=== PATIENT | male | born 1980 | race Hispanic/Latino ===

== ENCOUNTER 2020-01-29 06:12 | Emergency (ER) | payer BC ==
--- NOTE | 2020-01-29 07:29 | ER ---
Nurse's Notes [facility] Name: Daniel Ambrosio Jr Age: 39 yrs Sex: Male : 1980 Arrival Date: 01/29/2020 Time: 06:15 Bed 8 Private MD: Diagnosis: Vertigo of central origin, unspecified ear Presentation: 01/28 06:27 Chief complaint: Patient states: I got off work at 2300 yesterday and began to get jb4 dizzy. I cannot walk fast like I normally do or stand up fast without feeling like I am going to fall. Other than that I have body aches and a headache. No cough, nausea, vomiting or diarhea. Coronavirus screen: Client denies travel out of the [place] in the last 14 days. At this time, the client does not indicate any symptoms associated with coronavirus-19. Ebola Screen: No symptoms or risks identified at this time. Initial Sepsis Screen: Does the patient meet any 2 criteria? No. Patient's initial sepsis screen is negative. Does the patient have a suspected source of infection? No. Patient's initial sepsis screen is negative. Risk Assessment: Do you want to hurt yourself or someone else? Patient reports no desire to harm self or others. Onset of symptoms was January 28, 2020 at 23:00. Transition of care: patient was not received from another setting of care. 06:27 Method Of Arrival: Wheelchair jb4 06:27 Acuity: CAREN 3 jb4 Triage Assessment: 06:32 Headache History: Denies prior headaches. General: Appears in no apparent distress. jb4 comfortable, Behavior is calm, cooperative. Pain: Pain currently is 7 out of 10 on a pain scale. Pain began 2300 yesterday Also complains of no other associated symptoms. Neuro: Level of Consciousness is awake, alert, obeys commands, Oriented to person, place, time, situation, Reports dizziness. Historical: - Allergies: 06:32 No Known Allergies; jb4 - Home Meds: 06:32 metformin 500 mg Oral tab 1 tab 2 times per day [Active]; fenofibrate 160 mg oral tab jb4 [Active]; lisinopril 10 mg Oral tab [Active]; Alprazolam Oral [Active]; - PMHx: 06:32 Anxiety; Diabetes - NIDDM; Hypertension; jb4 - PSHx: 06:32 left hand; jb4 - Immunization history:: Adult Immunizations unknown. - Social history:: Smoking status: Patient denies any tobacco usage or history of. Patient uses alcohol, but reports only rare drinking. Patient/guardian denies using street drugs. Screenin:34 Abuse screen: Denies threats or abuse. Nutritional screening: No deficits noted. jb4 Tuberculosis screening: No symptoms or risk factors identified. Fall Risk None identified. Assessment: 06:34 General: Appears in no apparent distress. comfortable, Behavior is calm, cooperative, jb4 appropriate for age. Pain: Complains of pain in headache, body aches Pain does not radiate. Pain currently is 7 out of 10 on a pain scale. Quality of pain is described as aching. Neuro: Level of Consciousness is awake, alert, obeys commands, Oriented to person, place, time, situation. Cardiovascular: Patient's skin is warm and dry. Respiratory: Airway is patent Respiratory effort is even, unlabored, Respiratory pattern is regular, symmetrical. GI: No signs and/or symptoms were reported involving the gastrointestinal system. : No signs and/or symptoms were reported regarding the genitourinary system. EENT: No signs and/or symptoms were reported regarding the EENT system. Derm: Skin is intact, Skin is pink, warm \T\ dry. Musculoskeletal: Circulation, motion, and sensation intact. Range of motion: intact in all extremities. 07:44 Reassessment: Patient appears in no apparent distress at this time. Patient and/or tw2 family updated on plan of care and expected duration. Pain level reassessed. Patient is alert, oriented x 3, equal unlabored respirations, skin warm/dry/pink. Patient states feeling better. Vital Signs: 06:27 BP 131 / 82; Pulse 84; Resp 16; Temp 98.5(O); Pulse Ox 96% on R/A; Weight 170.1 kg (R); jb4 Height 5 ft. 10 in. (177.80 cm) (R); Pain 7/10; 07:12 BP 115 / 63; Pulse 81; Resp 17; Pulse Ox 98% on R/A; tw2 06:27 Body Mass Index 53.81 (170.10 kg, 177.80 cm) jb4 ED Course: 06:15 Patient arrived in ED. bp1 06:17 Mary, Boyd, MD is Attending Physician. tw4 06:26 Cody Mendiola, RN is Primary Nurse. jb4 06:29 Triage completed. jb4 06:32 Arm band placed on right wrist. jb4 06:34 Patient has correct armband on for positive identification. Bed in low position. Call jb4 light in reach. Side rails up X 1. Pulse ox on. NIBP on. 07:35 Primary Nurse role handed off by Cody Mendiola RN bd 07:36 Gloria Fernández, RN is Primary Nurse. tw2 07:44 No provider procedures requiring assistance completed. Patient did not have IV access tw2 during this emergency room visit. Administered Medications: 06:49 Drug: TORadol 60 mg Route: IM; Site: right gluteus; jb4 07:45 Follow up: Response: No adverse reaction; Pain is decreased tw2 06:50 Drug: Meclizine 25 mg Route: PO; jb4 07:45 Follow up: Response: No adverse reaction; Marked relief of symptoms tw2 Outcome: 07:28 Discharge ordered by . tw4 07:44 Discharged to home ambulatory. tw2 07:44 Condition: stable 07:44 Discharge instructions given to patient, Instructed on discharge instructions, follow up and referral plans. no drinking with medication, no driving heavy equipment, medication usage, Demonstrated understanding of instructions, follow-up care, medications, Prescriptions given X 4. 07:45 Patient left the ED. tw2 Signatures: Jess Fulton Tara, RN RN tw2 Cody Mendiola RN RN jb4 Boyd Hernandez MD MD tw4 Emilie Almanza bp1
--- NOTE | 2020-01-29 07:30 | EDPHYS ---
Physician Documentation [facility] Name: Daniel Ambrosio Jr Age: 39 yrs Sex: Male : 1980 Arrival Date: 01/29/2020 Time: 06:15 Bed 8 Private MD: THOR Physician Boyd Hernandez HPI: 01/28 07:25 This 39 yrs old Male presents to ER via Wheelchair with complaints of tw4 Headache, Dizziness. 07:25 This 39 yrs old Male presents to ER via Wheelchair with complaints of tw4 Headache, Dizziness. 07:25 The patient complains of pain to the forehead. tw4 07:25 The patient presents with vertigo. Onset: The symptoms/episode began/occurred today. tw4 Context: occurred at home. Modifying factors: The symptoms are alleviated by holding head still, the symptoms are aggravated by movement of head, standing up, changing position. Associated signs and symptoms: Pertinent positives: headache, nausea, Pertinent negatives: abdominal pain, agitation, ataxia, blurred vision, chest pain, combativeness, confusion, diaphoresis, focal weakness, near-syncope, numbness, palpitations, , seizure, shortness of breath, syncope. The patient has not experienced similar symptoms in the past. Historical: - Allergies: 06:32 No Known Allergies; jb4 - Home Meds: 06:32 metformin 500 mg Oral tab 1 tab 2 times per day [Active]; fenofibrate 160 mg oral tab jb4 [Active]; lisinopril 10 mg Oral tab [Active]; Alprazolam Oral [Active]; - PMHx: 06:32 Anxiety; Diabetes - NIDDM; Hypertension; jb4 - PSHx: 06:32 left hand; jb4 - Immunization history:: Adult Immunizations unknown. - Social history:: Smoking status: Patient denies any tobacco usage or history of. Patient uses alcohol, but reports only rare drinking. Patient/guardian denies using street drugs. ROS: 07:25 Constitutional: Negative for fever, chills, and weight loss, Eyes: Negative for injury, tw4 pain, redness, and discharge, Cardiovascular: Negative for chest pain, palpitations, and edema, Respiratory: Negative for shortness of breath, cough, wheezing, and pleuritic chest pain, Abdomen/GI: Negative for abdominal pain, nausea, vomiting, diarrhea, and constipation, Back: Negative for injury and pain, Skin: Negative for injury, rash, and discoloration. 07:25 Neuro: Positive for dizziness, headache, Negative for altered mental status, gait disturbance, hearing loss, loss of consciousness, numbness, seizure activity. Exam: 07:25 Constitutional: This is a well developed, well nourished patient who is awake, alert, tw4 and in no acute distress. Head/Face: Normocephalic, atraumatic. Chest/axilla: Normal chest wall appearance and motion. Nontender with no deformity. No lesions are appreciated. Cardiovascular: Regular rate and rhythm with a normal S1 and S2. No gallops, murmurs, or rubs. Normal PMI, no JVD. No pulse deficits. Respiratory: Lungs have equal breath sounds bilaterally, clear to auscultation and percussion. No rales, rhonchi or wheezes noted. No increased work of breathing, no retractions or nasal flaring. Abdomen/GI: Soft, non-tender, with normal bowel sounds. No distension or tympany. No guarding or rebound. No evidence of tenderness throughout. Back: No spinal tenderness. No costovertebral tenderness. Full range of motion. MS/ Extremity: Pulses equal, no cyanosis. Neurovascular intact. Full, normal range of motion. Neuro: Awake and alert, GCS 15, oriented to person, place, time, and situation. Cranial nerves II-XII grossly intact. Motor strength 5/5 in all extremities. Sensory grossly intact. Cerebellar exam normal. Normal gait. Vital Signs: 06:27 BP 131 / 82; Pulse 84; Resp 16; Temp 98.5(O); Pulse Ox 96% on R/A; Weight 170.1 kg (R); jb4 Height 5 ft. 10 in. (177.80 cm) (R); Pain 7/10; 07:12 BP 115 / 63; Pulse 81; Resp 17; Pulse Ox 98% on R/A; tw2 06:27 Body Mass Index 53.81 (170.10 kg, 177.80 cm) jb4 MDM: 06:17 Patient medically screened. tw4 07:25 Differential diagnosis: cardiac arrhythmia, CVA, generalized weakness. Data reviewed: tw4 vital signs, nurses notes. Data interpreted: Pulse oximetry: Interpretation: normal. Counseling: I had a detailed discussion with the patient and/or guardian regarding: the historical points, exam findings, and any diagnostic results supporting the discharge/admit diagnosis. Special discussion: I discussed with the patient/guardian in detail that at this point there is no indication for admission to the hospital. It is understood, however, that if the symptoms persist or worsen the patient needs to return immediately for re-evaluation. Administered Medications: 06:49 Drug: TORadol 60 mg Route: IM; Site: right gluteus; jb4 07:45 Follow up: Response: No adverse reaction; Pain is decreased tw2 06:50 Drug: Meclizine 25 mg Route: PO; jb4 07:45 Follow up: Response: No adverse reaction; Marked relief of symptoms tw2 Disposition: 01/29/20 07:28 Discharged to Home. Impression: Vertigo of central origin, unspecified ear. - Condition is Stable. - Discharge Instructions: Dizziness, General Headache Without Cause, Vertigo. - Prescriptions for Ibuprofen 800 mg Oral Tablet - take 1 tablet by ORAL route every 12 hours As needed take with food; 20 tablet. Meclizine 25 mg Oral Tablet - take 1 tablet by ORAL route every 8 hours As needed; 30 tablet. Zofran 4 mg Oral Tablet - take 1 tablet by ORAL route every 12 hours As needed; 6 tablet. Cyclobenzaprine 5 mg Oral Tablet - take 1 tablet by ORAL route 3 times per day As needed; 15 tablet. - Work release form, Medication Reconciliation Form, Thank You Letter, Antibiotic Education, Prescription Opioid Use form. - Follow up: Private Physician; When: Upon discharge from the Emergency Department; Reason: Recheck today's complaints, Continuance of care, Re-evaluation by your physician. - Problem is new. - Symptoms have improved. Signatures: Gloria Fernández RN RN tw2 Cody Mendiola RN RN jb4 Boyd Hernandez MD MD tw4 Corrections: (The following items were deleted from the chart) 07:45 07:28 01/29/2020 07:28 Discharged to Home. Impression: Vertigo of central origin, tw2 unspecified ear. Condition is Stable. Forms are Work release form, Medication Reconciliation Form, Thank You Letter, Antibiotic Education, Prescription Opioid Use. Follow up: Private Physician; When: Upon discharge from the Emergency Department; Reason: Recheck today's complaints, Continuance of care, Re-evaluation by your physician. Problem is new. Symptoms have improved. tw4
[2020-01-29 07:52] VITALS: TEMP 98.5
[2020-01-29 07:53] VITALS: BP 115/63; O2SAT 98
== END 2020-01-29 07:45 | disposition home or self-care (01) ==
LOC: ER 06:12
DX: H81.4 Vertigo of central origin (principal); I10 Essential (primary) hypertension; E11.9 Type 2 diabetes mellitus without complications; F41.9 Anxiety disorder, unspecified
CPT/HCPCS: 96372; 99283

== ENCOUNTER 2021-02-08 07:39 | Emergency (ER) | payer BC, OTHER ==
--- NOTE | 2021-02-08 08:40 | RAD REPORT ---
EXAM DESCRIPTION: RAD - Hand Right 3 View - 02/08/2021 8:16 am CLINICAL HISTORY: Pain;Swelling COMPARISON: No comparisons FINDINGS: No acute fracture. No malalignment. No significant focal degenerative changes. IMPRESSION: No acute osseous abnormality involving the right hand.
--- NOTE | 2021-02-08 09:00 | ER ---
Nurse's Notes [facility] Name: Daniel Ambrosio Jr Age: 40 yrs Sex: Male : 1980 Arrival Date: 02/08/2021 Time: 07:42 Bed 14 Private MD: Masoud Ruff E Diagnosis: Cellulitis of right finger-middle Presentation: 02/08 07:48 Chief complaint: Patient states: "I accidentally hit a door about a week ago and my aa5 right hand it's still hurting and swollen". Coronavirus screen: At this time, the client does not indicate any symptoms associated with coronavirus-19. Ebola Screen: No symptoms or risks identified at this time. Initial Sepsis Screen: Does the patient meet any 2 criteria? HR > 90 bpm. Does the patient have a suspected source of infection? No. Patient's initial sepsis screen is negative. Risk Assessment: Do you want to hurt yourself or someone else? Patient reports no desire to harm self or others. Onset of symptoms was January 2021. 07:48 Method Of Arrival: Ambulatory aa5 07:48 Acuity: CAREN 4 aa5 Triage Assessment: 08:00 General: Appears in no apparent distress. comfortable, obese, Behavior is calm. Pain: ae4 Complains of pain in right index finger, dorsal aspect of distal phalanx of right index finger, dorsal aspect of middle phalanx of right index finger, dorsal aspect of proximal phalanx of right index finger, right middle finger, dorsal aspect of distal phalanx of right middle finger, dorsal aspect of middle phalanx of right middle finger, dorsal aspect of proximal phalanx of right middle finger and right middle fingernail Pain currently is 8 out of 10 on a pain scale. EENT: No deficits noted. Neuro: Level of Consciousness is awake, alert, obeys commands, Oriented to person, place, time, situation. Cardiovascular: Patient's skin is warm and dry. Respiratory: Airway is patent Respiratory effort is even, unlabored, Respiratory pattern is regular, symmetrical. GI: Abdomen is round. : No signs and/or symptoms were reported regarding the genitourinary system. Derm: Skin is pink, warm \\T\\ dry. Skin temperature is warm Wound noted right hand. Musculoskeletal: Swelling present in right hand. Injury Description: Crush injury Patient states he crushed his hand in a "steel door about a week ago". Historical: - Allergies: 07:48 No Known Allergies; aa5 - PMHx: 07:48 Anxiety; Diabetes - NIDDM; Hypertension; aa5 - PSHx: 07:48 L hand; aa5 - Immunization history:: Client reports receiving the 2nd dose of the Covid vaccine. - Social history:: Smoking status: Patient denies any tobacco usage or history of. Screenin:35 Abuse screen: Denies threats or abuse. Nutritional screening: No deficits noted. ae4 Tuberculosis screening: No symptoms or risk factors identified. Fall Risk None identified. Assessment: 08:10 Reassessment: Radiology at bedside obtaining x ray. ae4 09:11 Reassessment: Patient is alert, oriented x 3, equal unlabored respirations, skin aa5 warm/dry/pink. Finger splint applied to right middle finger. . 09:30 Reassessment: Patient and/or family updated on plan of care and expected duration. Pain ae4 level reassessed. Vital Signs: 07:48 BP 123 / 90; Pulse 96; Resp 18 S; Temp 97.0; Pulse Ox 98% on R/A; Weight 163.29 kg (R); aa5 Height 5 ft. 11 in. (180.34 cm) (R); 09:13 BP 144 / 93; Pulse 67; Resp 17; Pulse Ox 100% on R/A; ae4 07:48 Body Mass Index 50.21 (163.29 kg, 180.34 cm) aa5 ED Course: 07:42 Patient arrived in ED. as 07:42 Masoud Ruff MD is Private Physician. as 07:48 Shayan Martin PA is PHCP. cp 07:48 Viecnte Alexis MD is Attending Physician. cp 07:48 Arm band placed on. aa5 07:49 Triage completed. aa5 07:52 Cody Greene, CRISTINA is Primary Nurse. ae4 08:16 XRAY Hand RIGHT 3 View In Process Unspecified. EDMS 09:13 No provider procedures requiring assistance completed. Patient did not have IV access aa5 during this emergency room visit. 09:36 Bed in low position. Call light in reach. Side rails up X 1. Pulse ox on. ae4 Administered Medications: 09:07 Drug: Bactrim (trimethoprim-sulfamethoxazole) (160 mg-800 mg (DS) 1 tablet Route: PO; aa5 09:12 Follow up: Response: Medication administered at discharge. aa5 09:07 Drug: Ibuprofen 800 mg Route: PO; aa5 09:12 Follow up: Response: Medication administered at discharge. aa5 Outcome: 09:00 Discharge ordered by . cp 09:12 Discharged to home ambulatory. aa5 09:12 Condition: stable 09:12 Discharge instructions given to patient, Instructed on discharge instructions, follow up and referral plans. medication usage, Demonstrated understanding of instructions, follow-up care, medications, Prescriptions given X 2. 09:13 Patient left the ED. aa5 Signatures: Dispatcher [employer] EDMS Anastasiia Moran Audri, RN RN aa5 Shayan Martin PA PA cp Elliott, Andrea, RN RN ae4 Corrections: (The following items were deleted from the chart) 07:48 07:48 PSHx: None; aa5 aa5
--- NOTE | 2021-02-08 09:00 | EDPHYS ---
Physician Documentation [facility] Name: Daniel Ambrosio Jr Age: 40 yrs Sex: Male : 1980 Arrival Date: 02/08/2021 Time: 07:42 Bed 14 Private MD: Masoud Ruff E ED Physician Vicente Alexis HPI: 02/08 08:00 This 40 yrs old Male presents to ER via Ambulatory with complaints of Hand cp Injury, Hand Swelling. 08:00 The patient or guardian reports pain, swelling, tenderness. The complaints affect the cp distal phalanx right middle finger. 08:00 Context: Patient reports accidently striking finger against door approximately 1 week cp ago. 08:00 Associated signs and symptoms: Pertinent negatives: cyanosis distally, decreased cp sensation distally. Historical: - Allergies: 07:48 No Known Allergies; aa5 - PMHx: 07:48 Anxiety; Diabetes - NIDDM; Hypertension; aa5 - PSHx: 07:48 L hand; aa5 - Immunization history:: Client reports receiving the 2nd dose of the Covid vaccine. - Social history:: Smoking status: Patient denies any tobacco usage or history of. ROS: 08:05 MS/extremity: Positive for erythema, pain, swelling, tenderness, of the proximal cp phalanx of right middle finger, Negative for paresthesias. 08:05 Constitutional: Negative for fever. cp 08:05 All other systems are negative. Exam: 08:10 Constitutional: The patient appears in no acute distress, alert, awake, non-toxic, well cp developed, well nourished. 08:10 Head/Face: Normocephalic, atraumatic. cp 08:10 Chest/axilla: Inspection: normal. 08:10 Cardiovascular: Rate: normal. 08:10 Respiratory: the patient does not display signs of respiratory distress, Respirations: normal. 08:10 Skin: cellulitis, that is mild, well demarcated, on the base and radial side of nail folds . Vital Signs: 07:48 BP 123 / 90; Pulse 96; Resp 18 S; Temp 97.0; Pulse Ox 98% on R/A; Weight 163.29 kg (R); aa5 Height 5 ft. 11 in. (180.34 cm) (R); 09:13 BP 144 / 93; Pulse 67; Resp 17; Pulse Ox 100% on R/A; ae4 07:48 Body Mass Index 50.21 (163.29 kg, 180.34 cm) aa5 MDM: 07:52 Patient medically screened. cp 08:00 Differential diagnosis: cellulitis, abscess, fracture. cp 09:00 Data reviewed: vital signs, nurses notes, radiologic studies, plain films. cp 09:00 Test interpretation: by ED physician or midlevel provider: xrays of right hand negative cp for fracture. Counseling: I had a detailed discussion with the patient and/or guardian regarding: the historical points, exam findings, and any diagnostic results supporting the discharge/admit diagnosis, radiology results, to return to the emergency department if symptoms worsen or persist or if there are any questions or concerns that arise at home. 02/08 07:53 Order name: XRAY Hand RIGHT 3 View; Complete Time: 08:49 cp 02/08 08:59 Order name: Splint - Finger; Complete Time: 09:12 cp Administered Medications: 09:07 Drug: Bactrim (trimethoprim-sulfamethoxazole) (160 mg-800 mg (DS) 1 tablet Route: PO; aa5 09:12 Follow up: Response: Medication administered at discharge. aa5 09:07 Drug: Ibuprofen 800 mg Route: PO; aa5 09:12 Follow up: Response: Medication administered at discharge. aa5 Disposition: 09:15 Chart complete. cp 17:32 Co-signature as Attending Physician, Vicente Alexis MD PA/COPIER TECHNICIAN's history reviewed, ma2 patient interviewed, and examined. I agree with assessment and care plan and confirm the diagnosis (es) above. Disposition Summary: 02/08/21 09:00 Discharge Ordered Location: Home cp Problem: new cp Symptoms: have improved cp Condition: Stable cp Diagnosis - Cellulitis of right finger - middle cp Followup: cp - With: Private Physician - When: 1 - 2 days - Reason: Worsening of condition Discharge Instructions: - Discharge Summary Sheet cp - Cellulitis, Adult cp Forms: - Medication Reconciliation Form cp - Thank You Letter cp - Antibiotic Education cp - Prescription Opioid Use cp Prescriptions: - Naprosyn 500 mg Oral Tablet - take 1 tablet by ORAL route 2 times per day take with food; 30 tablet; Refills: cp 0, Product Selection Permitted - Bactrim DS 800-160 mg Oral Tablet - take 1 tablet by ORAL route every 12 hours for 10 days; 20 tablet; Refills: 0, cp Product Selection Permitted Signatures: Dispatcher [employer] Carmen Cleary RN RN aa5 Shayan Martin PA PA cp Alzahri, Mohammad, MD MD ma2 Corrections: (The following items were deleted from the chart) 07:48 07:48 PSHx: None; aa5 aa5
[2021-02-08 09:19] VITALS: BP 123/90; TEMP 97; O2SAT 98
[2021-02-08] MEDS ORDERED: IBUPROFEN 400 MG TAB ONE (09:30)
[2021-02-08] MEDS ORDERED: SMZ./TMP. 800/160 MG TABLET ONE (09:30)
== END 2021-02-08 09:13 | disposition home or self-care (01) ==
LOC: ER 07:39
DX: L03.011 Cellulitis of right finger (principal)
CPT/HCPCS: 99284

== ENCOUNTER 2021-11-04 19:11 | Emergency (ER) | payer OTHER ==
--- NOTE | 2021-11-04 20:36 | RAD REPORT ---
EXAM DESCRIPTION: RAD - Chest Pa And Lat (2 Views) - 11/04/2021 8:18 pm CLINICAL HISTORY: COUGH COMPARISON: <Comparisons> FINDINGS: Lines: None. Lungs: No evidence of edema or pneumonia. Pleural: No significant pleural effusions or pneumothorax. Cardiac: The heart size is within normal limits. Bones: No acute fractures. Other: IMPRESSION: No acute cardiopulmonary disease.
--- NOTE | 2021-11-04 21:57 | EDPHYS ---
Physician Documentation [facility] Name: Daniel Ambrosio Jr Age: 41 yrs Sex: Male : 1980 Arrival Date: 11/04/2021 Time: 19:15 Bed 12 Private MD: ED Physician Aroldo Salas HPI: 11/04 19:38 This 41 yrs old Male presents to ER via Ambulatory with complaints of Cough. cp 19:38 Onset: The symptoms/episode began/occurred 6 day(s) ago. cp 19:38 Severity of symptoms: in the emergency department the symptoms are unchanged, despite cp home interventions. Associated signs and symptoms: Pertinent positives: sore throat, Pertinent negatives: chest pain, diarrhea, fever, vomiting. Patient reports co-worker recently tested positive for COVID-19. Historical: - Allergies: 19:36 No Known Drug Allergies; hb - PMHx: 19:36 Anxiety; Diabetes - NIDDM; Hypertension; hb - PSHx: 19:36 L hand; hb - Immunization history:: Adult Immunizations up to date, Client reports receiving the 2nd dose of the Covid vaccine. - Social history:: Smoking status: Patient denies any tobacco usage or history of. ROS: 19:45 Constitutional: Negative for body aches, chills, fever, poor PO intake. cp 19:45 Eyes: Negative for injury, pain, redness, and discharge. cp 19:45 ENT: Positive for sore throat, Negative for drainage from ear(s), ear pain, difficulty swallowing, difficulty handling secretions. 19:45 Cardiovascular: Negative for chest pain, edema, palpitations. 19:45 Respiratory: Positive for cough, with no reported sputum, Negative for shortness of breath, wheezing. 19:45 Abdomen/GI: Negative for abdominal pain, nausea, vomiting, and diarrhea, constipation. 19:45 Back: Negative for pain at rest, pain with movement. 19:45 Neuro: Negative for altered mental status, dizziness, headache, weakness. 19:45 All other systems are negative. Exam: 19:50 Constitutional: The patient appears in no acute distress, alert, awake, cp non-diaphoretic, non-toxic, well developed, well nourished, obese. 19:50 Head/Face: Normocephalic, atraumatic. cp 19:50 Eyes: Periorbital structures: appear normal, Conjunctiva: normal, no exudate, no injection, Sclera: no appreciated abnormality, Lids and lashes: appear normal, bilaterally. 19:50 ENT: External ear(s): are unremarkable, Ear canal(s): are normal, clear, TM's: dullness, bilaterally, Nose: is normal, Mouth: Lips: moist, Oral mucosa: moist, Posterior pharynx: Airway: no evidence of obstruction, patent, Tonsils: with erythema, no enlargement, no exudate, erythema, that is mild, exudate, is not appreciated. 19:50 Neck: ROM/movement: is normal, is supple, without pain, no range of motions limitations, no meningismus, Lymph nodes: no appreciated lymphadenopathy. 19:50 Chest/axilla: Inspection: normal. 19:50 Cardiovascular: Rate: normal, Rhythm: regular, Edema: is not appreciated, JVD: is not appreciated. 19:50 Respiratory: the patient does not display signs of respiratory distress, Respirations: normal, no use of accessory muscles, no retractions, labored breathing, is not present, Breath sounds: decreased breath sounds, are not appreciated, stridor, is not appreciated, + upper airway congestion. wheezing: is not appreciated. 19:50 Abdomen/GI: Exam negative for discomfort, distension, guarding, Inspection: obese 19:50 Back: pain, is absent, ROM is normal. Vital Signs: 19:35 BP 138 / 91; Pulse 89; Resp 20; Temp 98.1; Pulse Ox 98% on R/A; hb 22:16 BP 132 / 86; Pulse 88; Resp 18 S; Pulse Ox 99% on R/A; lg3 MDM: 20:59 Patient medically screened. cp 21:00 Differential Diagnosis: Bronchitis Influenza Otitis Media Pneumonia. cp 21:55 Data reviewed: vital signs, nurses notes, lab test result(s), radiologic studies, plain cp films. Test interpretation: by ED physician or midlevel provider: plain radiologic studies. Counseling: I had a detailed discussion with the patient and/or guardian regarding: the historical points, exam findings, and any diagnostic results supporting the discharge/admit diagnosis, lab results, radiology results, to return to the emergency department if symptoms worsen or persist or if there are any questions or concerns that arise at home. ED course: Patient appears non-toxic and no signs of respiratory distress. Will discharge to home for continued monitoring. 11/04 19:39 Order name: COVID-19 SARS RT PCR (Document "Date of Onset" if Symptomatic); Complete cp Time: 21:55 11/04 21:55 Interpretation: Reviewed. cp 11/04 19:39 Order name: Strep; Complete Time: 21:55 cp 11/04 19:39 Order name: XRAY Chest Pa And Lat (2 Views); Complete Time: 21:55 cp 11/04 21:55 Interpretation: Report reviewed. cp 11/04 20:19 Order name: Throat Culture EDMS Administered Medications: No medications were administered Disposition: 23:44 Co-signature as Attending Physician, Aroldo Salas MD. rn Disposition Summary: 11/04/21 21:56 Discharge Ordered Location: Home cp Problem: new cp Symptoms: have improved cp Condition: Stable cp Diagnosis - SARS-associated coronavirus as the cause of diseases classified elsewhere cp Followup: cp - With: Private Physician - When: 1 - 2 days - Reason: Worsening of condition Discharge Instructions: - Discharge Summary Sheet cp - Aspirin and Your Heart cp - Form - Excuse from Work, School, or Physical Activity cp - COVID-19 cp - Things to Know about the COVID-19 Pandemic - [facility] cp - 10 Things You Can Do to Manage Your COVID-19 Symptoms at Home - [facility] cp - COVID-19: Quarantine vs. Isolation - [facility] cp - Prevent the Spread of COVID-19 if You Are Sick - [facility] cp Forms: - Medication Reconciliation Form cp - Thank You Letter cp - Antibiotic Education cp - Prescription Opioid Use cp Prescriptions: - Bromfed DM 2-30-10 mg/5 mL Oral syrup - take 10 milliliters by ORAL route every 6 hours; 200 milliliter; Refills: 0, cp Product Selection Permitted - Ibuprofen 800 mg Oral Tablet - take 1 tablet by ORAL route every 8 hours As needed take with food; 30 tablet; cp Refills: 0, Product Selection Permitted - Zithromax Z-Jayme 250 mg Oral Tablet - take 1 tablet by ORAL route as directed for 5 days Day 1 - take two (2) tablets cp one time. Day 2, 3, 4 , 5 take one (1) tablet once daily.; 6 tablet; Refills: 0, Product Selection Permitted Signatures: Dispatcher [employer] EDAroldo Connor MD MD rn Shayan Martin PA PA cp Baxter, Heather, RN RN hb
--- NOTE | 2021-11-04 21:57 | ER ---
Nurse's Notes [facility] Name: Daniel Ambrosio Jr Age: 41 yrs Sex: Male : 1980 Arrival Date: 11/04/2021 Time: 19:15 Bed 12 Private MD: Diagnosis: SARS-associated coronavirus as the cause of diseases classified elsewhere Presentation: 11/04 19:35 Chief complaint: Cough, congestion, body aches, SOB, chills, and sore throat x 1 week. hb Coronavirus screen: Client presents with at least one sign or symptom that may indicate coronavirus-19. Standard/surgical mask placed on the client. Provider contacted for isolation considerations. Ebola Screen: No symptoms or risks identified at this time. Risk Assessment: Do you want to hurt yourself or someone else? Patient reports no desire to harm self or others. Onset of symptoms was October 29, 2021. 19:35 Method Of Arrival: Ambulatory hb 19:35 Acuity: CAREN 4 hb 19:37 Initial Sepsis Screen: Does the patient meet any 2 criteria? No. Patient's initial hb sepsis screen is negative. Does the patient have a suspected source of infection? No. Patient's initial sepsis screen is negative. Historical: - Allergies: 19:36 No Known Drug Allergies; hb - PMHx: 19:36 Anxiety; Diabetes - NIDDM; Hypertension; hb - PSHx: 19:36 L hand; hb - Immunization history:: Adult Immunizations up to date, Client reports receiving the 2nd dose of the Covid vaccine. - Social history:: Smoking status: Patient denies any tobacco usage or history of. Screenin:14 Abuse screen: Denies threats or abuse. Denies injuries from another. Nutritional lg3 screening: No deficits noted. Tuberculosis screening: No symptoms or risk factors identified. Fall Risk None identified. Assessment: 22:14 General: Appears in no apparent distress. comfortable, Behavior is calm, cooperative. lg3 Pain: Complains of pain in head, generalized body aches. Neuro: No deficits noted. Level of Consciousness is awake, alert, obeys commands, Oriented to person, place, time, situation. Cardiovascular: No deficits noted. Denies chest pain, shortness of breath, Capillary refill < 3 seconds Clubbing of nail beds is absent JVD is absent Patient's skin is warm and dry. Respiratory: Reports cough that is persistent Airway is patent Trachea midline Respiratory effort is even, unlabored, Respiratory pattern is regular, symmetrical. GI: No deficits noted. No signs and/or symptoms were reported involving the gastrointestinal system. Abdomen is round non-distended. : No deficits noted. No signs and/or symptoms were reported regarding the genitourinary system. EENT: No deficits noted. No signs and/or symptoms were reported regarding the EENT system. Derm: No deficits noted. No signs and/or symptoms reported regarding the dermatologic system. Skin is intact, is healthy with good turgor, Skin is dry, Skin temperature is warm. Musculoskeletal: No deficits noted. No signs and/or symptoms reported regarding the musculoskeletal system. Circulation, motion, and sensation intact. Range of motion: intact in all extremities. Vital Signs: 19:35 BP 138 / 91; Pulse 89; Resp 20; Temp 98.1; Pulse Ox 98% on R/A; hb 22:16 BP 132 / 86; Pulse 88; Resp 18 S; Pulse Ox 99% on R/A; lg3 ED Course: 19:15 Patient arrived in ED. bp1 19:30 Shayan Martin PA is PHCP. cp 19:30 Aroldo Salas MD is Attending Physician. cp 19:36 Triage completed. hb 19:37 Arm band placed on. hb 20:20 XRAY Chest Pa And Lat (2 Views) In Process Unspecified. EDMS 21:39 Milly Del Rio, RN is Primary Nurse. lg3 22:14 Patient has correct armband on for positive identification. Bed in low position. Call lg3 light in reach. Side rails up X 1. Client placed on continuous cardiac and pulse oximetry monitoring. NIBP monitoring applied. Door closed. Noise minimized. Warm blanket given. 22:14 No provider procedures requiring assistance completed. Patient did not have IV access lg3 during this emergency room visit. Administered Medications: No medications were administered Medication: 22:14 VIS not applicable for this client. lg3 Outcome: 21:56 Discharge ordered by . cp 22:14 Discharged to home ambulatory. lg3 22:14 Condition: stable 22:14 Discharge instructions given to patient, Instructed on discharge instructions, medication usage, Demonstrated understanding of instructions, medications, Prescriptions given X 3. 22:17 Patient left the ED. lg3 Signatures: Dispatcher [employer] Shayan Livingston PA PA cp Baxter, Heather, RN RN hb Milly Del Rio RN RN lg3 Emilie Almanza [facility]
[2021-11-04 22:22] VITALS: TEMP 98.1
[2021-11-04 22:23] VITALS: BP 132/86; O2SAT 99
== END 2021-11-04 22:17 | disposition home or self-care (01) ==
LOC: ER 19:11
DX: U07.1 COVID-19 (principal); R05.9 Cough, unspecified
CPT/HCPCS: 87070; 87081; 71046; U0003

== ENCOUNTER 2024-05-18 18:35 | Emergency (ER) | payer OTHER ==
--- NOTE | 2024-05-18 19:46 | RAD REPORT ---
EXAM:Ribs Right CLINICAL HISTORY: Right rib pain FINDINGS: No fracture seen. No pneumothorax
[2024-05-18 20:45] LABS: Absolute Basophils 0.1 K/uL (0-0.5); Absolute Eosinophils 0.1 K/uL (0-0.5); Absolute Lymphocytes (CBC) 4.6 K/uL (0.7-4.9); Absolute Monocytes 0.7 K/uL (0.1-1.3); Absolute Neutrophil 6.3 K/uL (1.8-8.0); Basophils % 0.6 % (0-1.3); Eosinophils % 1.1 % (0-4.4); Hematocrit 42.5 % (39.6-49.0); Hemoglobin 14.3 g/dL (13.6-17.9); MCH 29.9 pg (27.0-35.0); MCHC 33.7 g/dL (32.0-36.0); MPV 8.2 fL (7.6-11.3); Monocytes % 6.3 % (3.3-12.3); Nucleated Red Blood Cells % 0.2 % (0-0); Platelets 302 thou/uL (152-406); RBC Red Blood Cell Count 4.78 M/uL (4.33-5.43); Red Cell Distribution Width 13.6 % (12.1-15.2)
[2024-05-18 21:03] LABS: Albumin 3.9 g/dL (3.4-5.0); Albumin/Globulin Ratio 1.1 (1.1-1.8); Anion Gap 11.5 mEq/L (5.0-15.0); Bilirubin Total 0.3 mg/dL (0.2-1.0); Globulin 3.7 g/dL (2.3-3.5); Potassium 3.5 mEq/L (3.5-5.1); Protein, Total 7.6 g/dL (6.4-8.2)
--- NOTE | 2024-05-18 22:03 | RAD REPORT ---
EXAMINATION: CT ABDOMEN AND PELVIS WITH CONTRAST CLINICAL INDICATION: Abdominal pain TECHNIQUE: CT abdomen and pelvis was performed, after the administration of 100 cc Isovue-300.. Sagit octaviano and coronal reconstructions were obtained. One or more of the following dose reduction techniques were used: Automated exposure control, adjustment of the mA and kV according to patient si ze, and iterative reconstruction. Unless otherwise specified, incidental findings do not require dedicated imaging follow-up. [id number]. Oral contrast was not given which limits evaluation of bowel and appendix. COMPARISON: .None FINDINGS: Liver is mildly enlarged with fatty infiltration. Cholelithiasis is present. The spleen, pancreas and adrenals are unremarkable Kidneys unremarkable Normal appendix.. No evidence of diverticulitis. Moderate umbilical hernia contains fat : IMPRESSION: Mild hepatomegaly with fatty infiltration Cholelithiasis
--- NOTE | 2024-05-18 22:27 | EDPHYS ---
Physician Documentation [facility] Name: Daniel Ambrosio Jr Age: 43 yrs Sex: Male : 1980 Arrival Date: 05/18/2024 Time: 18:35 Bed 11 Private MD: Masoud Ruff E ED Physician Bobby Mendoza HPI: 05/18 19:54 This 43 yrs old Male presents to ER via Ambulatory with complaints of rib sb4 pain/RUQ abdominal pain. 05/19 00:21 patient reports pain right lower rib pain/right upper quadrant abdominal pain x 2.5 sb4 weeks. denies any known injury. states that he leans on a heavy object frequently at work and thinks he could have injured it that way but cannot think of anything specific. states the pain worsens with inspiration and is unable to lay on his right side. denies any associated sob, chest pain, nausea, vomiting, diarrhea. Historical: - Allergies: 05/18 18:58 No Known Drug Allergies; jb4 - PMHx: 18:58 Anxiety; Diabetes - NIDDM; Hypertension; jb4 - PSHx: 18:58 L hand; jb4 - Immunization history:: Adult Immunizations up to date. - Infectious Disease History:: Denies. - Social history:: Smoking status: Patient denies any tobacco usage or history of. ROS: 05/19 00:21 Constitutional: Negative for fever, chills, and weight loss, sb4 Abdomen/GI: Positive for abdominal pain, of the right upper quadrant, All other systems are negative, Exam: 00:21 Head/Face: Normocephalic, atraumatic. Eyes: Extra-ocular motions intact. Periorbital sb4 areas with no swelling, redness, or edema. ENT: Mucous membranes moist. Cardiovascular: Regular rate and rhythm with a normal S1 and S2. Respiratory: No increased work of breathing, no retractions or nasal flaring. Skin: Warm, dry with normal turgor. Normal color with no rashes, no lesions, and no evidence of cellulitis. 00:21 Constitutional: The patient appears in no acute distress, alert, awake, obese, 00:21 Chest/axilla: Palpation: tenderness, is not appreciated, 00:21 Abdomen/GI: Inspection: abdomen appears normal, Bowel sounds: normal, Palpation: soft, mild abdominal tenderness, in the right upper quadrant, Vital Signs: 05/18 18:56 BP 133 / 97; Pulse 99; Resp 20; Temp 98.9(O); Pulse Ox 95% on R/A; Weight 158.76 kg jb4 (R); Height 5 ft. 10 in. ; 21:41 BP 120 / 67; Pulse 88; Resp 16; Pulse Ox 100% on R/A; jb4 18:56 Body Mass Index 50.22 (158.76 kg, 177.8 cm) jb4 MDM: 18:55 Medical Screening Exam initiated sb4 05/19 00:24 Data reviewed: vital signs, nurses notes, lab test result(s), radiologic studies, and sb4 as a result, I will discharge patient. Counseling: I had a detailed discussion with the patient and/or guardian regarding the historical points, exam findings, and any diagnostic results supporting the discharge/admit diagnosis, lab results, radiology results, the need for outpatient follow up, a general surgeon, to return to the emergency department if symptoms worsen or persist or if there are any questions or concerns that arise at home. 05/18 19:52 Order name: CBC with Diff; Complete Time: 20:57 sb4 05/18 19:52 Order name: CMP; Complete Time: 21:04 sb4 05/18 19:52 Order name: Lipase; Complete Time: 21:04 sb4 05/18 19:03 Order name: Ribs Right XRAY; Complete Time: 19:52 sb4 05/18 19:52 Order name: CT Abd/Pelvis - IV Contrast Only; Complete Time: 22:09 sb4 05/18 19:52 Order name: IV Saline Lock; Complete Time: 20:38 sb4 05/18 19:52 Order name: Labs collected and sent; Complete Time: 20:38 sb4 Administered Medications: No medications were administered Disposition Summary: 05/18/24 22:26 Discharge Ordered Notes: Location: Home sb4 Problem: new sb4 Symptoms: have improved sb4 Condition: Stable sb4 Diagnosis - Cholelithiasis sb4 - Fatty (change of) liver, not elsewhere classified sb4 Followup: sb4 - With: Masoud Ruff MD - When: 1 week - Reason: Recheck today's complaints, Re-evaluation by your physician Discharge Instructions: - Discharge Summary Sheet sb4 - Cholelithiasis, [id number] sb4 - Nonalcoholic Fatty Liver Disease Diet, Adult sb4 - Gallbladder Eating Plan sb4 Forms: - Work release form sb4 - Patient Portal Instructions sb4 - Leadership Thank You Letter sb4 Prescriptions: - Diclofenac Sodium 75 mg Oral Tablet Sustained Release - take 1 tablet ORAL route 2 times per day; 30 tablet; Refills: 0, Product sb4 Selection Permitted - dicyclomine 20 mg Oral tablet - take 1 tablet ORAL route 3 times per day PRN abdominal pain; 20 tablet; sb4 Refills: 0, Product Selection Permitted Signatures: Dispatcher [employer] Cody Dela Cruz RN RN jb4 Carey Perez PA-C PA-C sb4
--- NOTE | 2024-05-18 22:27 | ER ---
Nurse's Notes [facility] Name: Daniel Ambrosio Jr Age: 43 yrs Sex: Male : 1980 Arrival Date: 05/18/2024 Time: 18:35 Bed 11 Private MD: Masoud Ruff E Diagnosis: Cholelithiasis;Fatty (change of) liver, not elsewhere classified Presentation: 05/18 18:56 Chief complaint: Patient states: I have been having right rib pain for the past 2 jb4 weeks. Coronavirus screen: At this time, the client does not indicate any symptoms associated with coronavirus-19. Ebola Screen: No symptoms or risks identified at this time. Initial Sepsis Screen: Does the patient meet any 2 criteria? HR > 90 bpm. Yes Does the patient have a suspected source of infection? No. Patient's initial sepsis screen is negative. Risk Assessment: Do you want to hurt yourself or someone else? Patient reports no desire to harm self or others. Onset of symptoms was May 18, 2024. Transition of care: patient was not received from another setting of care. 18:56 Method Of Arrival: Ambulatory jb4 18:56 Acuity: CAREN 3 jb4 Triage Assessment: 18:58 General: Appears in no apparent distress. uncomfortable, Behavior is calm, cooperative, jb4 appropriate for age. Pain: Complains of pain in right lateral anterior chest Pain does not radiate. Pain currently is 9 out of 10 on a pain scale. Quality of pain is described as sharp, stabbing, Pain began 2 weeks ago Is continuous. Neuro: Level of Consciousness is awake, alert, obeys commands, Oriented to person, place, time, situation. Cardiovascular: Patient's skin is warm and dry. Respiratory: Reports pain with respiration since 2 weeks ago Airway is patent Respiratory effort is even, unlabored, Respiratory pattern is regular, symmetrical. Derm: Skin is intact, Skin is pink, warm \T\ dry. Musculoskeletal: Circulation, motion, and sensation intact. Range of motion: intact in all extremities. Historical: - Allergies: 18:58 No Known Drug Allergies; jb4 - PMHx: 18:58 Anxiety; Diabetes - NIDDM; Hypertension; jb4 - PSHx: 18:58 L hand; jb4 - Immunization history:: Adult Immunizations up to date. - Infectious Disease History:: Denies. - Social history:: Smoking status: Patient denies any tobacco usage or history of. Screenin:41 [facility] ED Fall Risk Assessment (Adult) History of falling in the last 3 months, jb4 including since admission No falls in past 3 months (0 pts) Confusion or Disorientation No (0 pts) Intoxicated or Sedated No (0 pts) Impaired Gait No (0 pts) Mobility Assist Device Used No (0 pt) Altered Elimination No (0 pt) Score/Fall Risk Level 0 - 2 = Low Risk Oriented to surroundings, Maintained a safe environment. Abuse screen: Denies threats or abuse. Nutritional screening: No deficits noted. Tuberculosis screening: No symptoms or risk factors identified. Assessment: 21:41 Reassessment: Patient appears in no apparent distress at this time. Patient and/or jb4 family updated on plan of care and expected duration. Pain level reassessed. Patient is alert, oriented x 3, equal unlabored respirations, skin warm/dry/pink. 22:46 Reassessment: Patient appears in no apparent distress at this time. Patient and/or jb4 family updated on plan of care and expected duration. Pain level reassessed. Patient is alert, oriented x 3, equal unlabored respirations, skin warm/dry/pink. Vital Signs: 18:56 BP 133 / 97; Pulse 99; Resp 20; Temp 98.9(O); Pulse Ox 95% on R/A; Weight 158.76 kg jb4 (R); Height 5 ft. 10 in. ; 21:41 BP 120 / 67; Pulse 88; Resp 16; Pulse Ox 100% on R/A; jb4 18:56 Body Mass Index 50.22 (158.76 kg, 177.8 cm) jb4 ED Course: 18:36 Patient arrived in ED. am2 18:36 Masoud Ruff MD is Private Physician. am2 18:55 Carey [facility] sb4 18:55 Bobby Mendoza MD is Attending Physician. sb4 18:58 Triage completed. jb4 18:58 Arm band placed on right wrist. jb4 19:40 Ribs Right XRAY In Process Unspecified. EDMS 20:37 Inserted saline lock: 20 gauge in right antecubital area, using aseptic technique. hw Blood collected. Flushed with 10 mL NS. 20:38 CBC with Diff Sent. hw 20:38 CMP Sent. hw 20:38 Lipase Sent. hw 21:24 CT Abd/Pelvis - IV Contrast Only In Process Unspecified. EDMS 21:41 Patient has correct armband on for positive identification. Bed in low position. Call jb4 light in reach. Side rails up X 1. Provided Education on: plan of care. 21:41 No provider procedures requiring assistance completed. jb4 22:26 Masoud Ruff MD is Referral Physician. sb4 22:46 IV discontinued, intact, bleeding controlled, No redness/swelling at site. Pressure jb4 dressing applied. Administered Medications: No medications were administered Medication: 21:41 VIS not applicable for this client. jb4 Outcome: 22:26 Discharge ordered by . sb4 22:46 Discharged to home ambulatory, jb4 22:46 Condition: stable 22:46 Discharge instructions given to patient, Instructed on discharge instructions, follow up and referral plans. medication usage, Demonstrated understanding of instructions, follow-up care, medications, Prescriptions given X 2, 22:53 Patient left the ED. jb4 Signatures: Dispatcher [employer] EDMS Cody Mendiola, RN RN jb4 Shannen Frazier amCarey Velez, PA-C PA-C sb4 Soraida Deluna
[2024-05-19 07:13] VITALS: TEMP 98.9
[2024-05-19 07:14] VITALS: BP 120/67; O2SAT 100
== END 2024-05-18 22:53 | disposition home or self-care (01) ==
LOC: ER 18:35
DX: K80.20 Calculus of gallbladder without cholecystitis without obstruction (principal); K76.0 Fatty (change of) liver, not elsewhere classified
CPT/HCPCS: 85025; 36415; 83690; 80053; 74177; 71100; 99284; Q9967